=== PATIENT | female | born 1945 | race Caucasian/White ===

== ENCOUNTER 2018-12-12 16:09 | Inpatient (IN) ==
[2018-12-12] MEDS ORDERED: *HR* OxyCODONE/APAP 10/325 TABLET PO PRN (17:16)
[2018-12-12] MEDS ORDERED: *HR* Dextrose 50 % in Water (Vial) 50 ML VIAL IVP PRN (17:18)
[2018-12-12] MEDS ORDERED: D5% in Water 1,000 ML IVC PRN (17:18)
[2018-12-12] MEDS ORDERED: Dextrose Gel 15 GM/37.5 ML TUBE PO PRN ×2 (17:18)
[2018-12-12] MEDS: Insulin LISPRO 300 UNITS/3 ML VIAL SQ SCH (21:44)
[2018-12-13] MEDS: Insulin LISPRO 300 UNITS/3 ML VIAL SQ SCH ×4 (08:52→20:16)
[2018-12-13] MEDS ORDERED: Lactobacillus 1 EACH CAP.SPRINK PO SCH (09:00)
[2018-12-13] MEDS: *HR* SitaGLIPtin 25 MG TABLET PO SCH (09:19)
[2018-12-13] MEDS: Cholecalciferol (D-3) 1,000 UNIT TABLET PO SCH (09:19)
[2018-12-13] MEDS: Tiotropium 18 MCG inhalation IH SCH (10:23)
--- NOTE | 2018-12-13 12:08 | Internal Med History&Physical ---
Date of Encounter: 12/13/18 Time of Encounter: 11:30 Assessment and Plan (1) Hypokalemia Current visit: No Status: Acute Supplemental potassium dose will be increased and labs will be monitored. (2) Weakness Current visit: No Status: Acute She will have PT and OT evaluations with ongoing intervention. (3) DM (diabetes mellitus), type 2 Current visit: No Status: Acute Hemoglobin A1c was 11.1% on 10/04/2017. Recheck in a.m. 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 (5) Dementia Current visit: No Status: Acute MMSE exam will be done. B12 was 645 and TSH 1.245 in April 2016. Continue Aricept. Qualifiers: Dementia type: Alzheimer's disease Alzheimer's disease onset: early-onset Dementia behavioral disturbance: without behavioral disturbance Qualified Code(s): G30.0 - Alzheimer's disease with early onset; F02.80 - Dementia in other diseases classified elsewhere without behavioral disturbance (6) Hypertension Current visit: No Status: Chronic Continue Lopressor and lisinopril Qualifiers: Hypertension type: essential hypertension Qualified Code(s): I10 - Essential (primary) hypertension Internal Medicine - H&P: HPI Chief complaint: Pneumonia, hypoglycemia, dementia Admitted From: Hospital to Hospital Transfer Plans for Post Hospital Care: Home History of present illness: Ms. Mclean is a 73 year old female who was admitted to [facility] swing bed after hospitalization at [facility] December 05- for hypoglycemia. She was treated for pneumonia. She had PT and OT intervention and it was felt she would benefit from ongoing therapy in swing bed. She is a fair to poor historian due to dementia. Past Med Surg Social Fam HX - Past Medical History Medical history: arthritis, CHF, COPD, diabetes, GERD, hyperlipidemia, hypertension, osteoporosis, renal disease, other Additional medical history: narcolepsy, IBS Psychiatric history: anxiety - Past Surgical History Surgical History: other Additional surgical history: right total shoulder replacement 2010 - Social History Smoking Status: Current every day smoker Smokeless Tobacco Status: No Alcohol use: none Drug use: none - Family History Mother Adopted: No Family Member Ethnicity: Non- Living Status: Hx Family Cardiac Disorders: Yes (heart attack, HTN) Hx Family Respiratory Disorders: Yes Hx Family Cancer: No Hx Family GI Disorders: No Hx Family Endocrine Disorder: Yes (diabetes) Hx Family Neuromuscular Disorders: No Hx Family Neurologic Disorders: No Hx Family HEENT Disorders: No Hx Family Autoimmune Disorders: No Internal Medicine - H&P: Meds Albuterol Sulfate [Albuterol Inhaler] 2 puff IH Q6H PRN 12/05/18 [History] Citalopram Hydrobromide [Citalopram HBr] 20 mg PO DAILY 12/05/18 [History] Donepezil [Aricept] 5 mg PO HS 12/05/18 [History] Dulaglutide [Trulicity] 0.75 mg SQ SA 12/05/18 [History] Ergocalciferol (VITAMIN D2) [Vitamin D2] 50,000 unit PO FR 12/05/18 [History] Lisinopril [Zestril] 5 mg PO DAILY 12/05/18 [History] Metoprolol Tartrate 50 mg PO DAILY 12/05/18 [History] Potassium Chloride [K-Tab ER] 10 meq PO DAILY 12/05/18 [History] Sitagliptin Phosphate [Januvia] 50 mg PO DAILY 12/05/18 [History] Tiotropium [Spiriva] 18 mcg IH DAILY 12/05/18 [History] Insulin LISPRO [HumaLOG] See Protocol SQ TIDAC vial 12/12/18 [Rx] Lactobacillus [Culturelle] 2 each PO DAILY cap.sprink 12/12/18 [Rx] OxyCODONE/APAP 10/325 [Percocet 10/325 MG] 1 tab PO Q6H PRN 2 Days #8 tablet 12/12/18 [Rx] Allergy/AdvReac Type Severity Reaction Status Date / Time No Known Allergies Allergy Verified 12/05/18 16:19 All Systems PM: A 10-system review of systems was performed and is negative for pertinent findings except as documented above in the HPI. Review of systems: Review of systems is obtained from the patient and review of available records. Gen.: Her weight has been stable since October 2016 hospitalization at approximately 130 kg. Cardiovascular: She has history of hypertension but no known [place] heart failure DVT or pulmonary embolus. Echocardiogram was done 04/16/2016 and showed LVEF " probably normal". (Follow-up limited echo 04/20/2016 showed LVEF of 70%). There was reported indeterminate diastolic function. E/A ratio was 0.9. The interventricular septum and posterior wall thickness measurements were 1.10 and 1.20 cm respectively. No significant valvular abnormalities were seen. Respiratory: She has smoked since age 13 never exceeding 1 pack per day. She reports supplemental home oxygen is used on an occasional basis. PFTs 06/16/2016 showed FVC 40% predicted, FEV1 30% predicted, FEV1/FVC 71%, and MVV 23% predicted. There was no significant change in FEV1 or FVC postbronchodilator. Most recent chest CT no worrisome findings suspicious for malignancy. She has stable left adrenal gland nodule. GI: She denies disorders of her liver gallbladder or exocrine pancreas. She reports she drank alcohol regularly in the past. : She denies hematuria dysuria or kidney stones. She has chronic kidney disease stage 2-3. Neurologic: She has a diagnosis of dementia. Chart also reports a diagnosis of narcolepsy. She denies large distribution strokes or seizures. Endocrine: She reports being diagnosed with DM 2 in her mid 50s. She denies thyroid disease. She has history of hyperlipidemia Hematology/oncology: She denies blood disorders cancers or anemia Psychiatric: She has diagnoses of anxiety and depression but denies other mental health issues. [place] skeletal: She had right total shoulder replacement in 2009. She has diagnoses of DJD and osteoporosis. She denies other bone joint or muscle disorders. - Constitutional Vitals: Temp Pulse Resp BP Pulse Ox 97.9 F 78 14 140/65 96 12/13/18 07:06 12/13/18 08:59 12/13/18 07:06 12/13/18 07:06 12/13/18 08:59 Exam: Gen.: She is a well-developed morbidly obese female lying in bed who appears in no acute distress. She reports minimal pain. HEENT: Head is atraumatic and normocephalic. Eyes: EOMI. There is no scleral icterus. Mouth: Mucosa is moist. Neck: Supple and nontender. There is no thyromegaly or adenopathy noted. Heart: Regular without murmurs gallops or ectopics Lungs: No wheezes or crackles are heard. Abdomen: He has a very large pannus. Abdomen is soft and nontender. No masses or guarding are noted. Extremities: There is no cyanosis edema or clubbing noted. Dorsalis pedis and posterior tibial pulses are trace palpable. Neurologic: Mental status: She is talkative and able to answer a few questions but is a fair historian at best. She does not know her age and does not recall being at [facility]. Cranial nerves: Smile is symmetric. Forehead wrinkles bilaterally. Tongue protrudes midline. EOMI. Motor: There is no pronator drift. There is no cogwheeling or rigidity on passive range of motion. Cerebellar: Finger to nose is intact bilaterally. Skin: She has ecchymoses of various stages healing involving large areas on her arms. Skin is warm and dry.
[2018-12-14 06:55] LABS: Magnesium 1.8 mg/dL (1.6-2.6); Phosphorous 3.2 mg/dL (2.7-4.5)
[2018-12-14 07:08] LABS: Thyroid Stimulating Hormone 3.353 mcIU/mL (0.340-5.600)
[2018-12-14] MEDS: Insulin LISPRO 300 UNITS/3 ML VIAL SQ SCH ×4 (08:06→20:38)
[2018-12-14] MEDS: Cholecalciferol (D-3) 1,000 UNIT TABLET PO SCH (08:07)
[2018-12-14] MEDS: *HR* SitaGLIPtin 25 MG TABLET PO SCH (08:07)
[2018-12-14 09:57] LABS: Estimated Average Glucose 143 mg/dl; Hemoglobin A1C 6.6 %
--- NOTE | 2018-12-14 10:19 | Internal Med Progress Note ---
Date of Encounter: 12/14/18 Time of Encounter: 10:10 - Assessment and plan (1) Hypokalemia Current Visit: No Status: Acute Assessment and plan: December 14. Continue supplemental potassium and monitor labs. (2) Weakness Current Visit: No Status: Acute Assessment and plan: December 14. Continue PT and OT intervention. (3) DM (diabetes mellitus), type 2 Current Visit: No Status: Acute Assessment and plan: December 14. Hemoglobin A1c acceptable at 6.6%. 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 Monitor renal indices. (5) Dementia Current Visit: No Status: Acute Assessment and plan: December 14. MMSE exam pending. B12 was 645 and TSH 1.245 in April 2016. Continue Aricept. Qualifiers: Dementia type: Alzheimer's disease Alzheimer's disease onset: early-onset Dementia behavioral disturbance: without behavioral disturbance Qualified Code(s): G30.0 - Alzheimer's disease with early onset; F02.80 - Dementia in other diseases classified elsewhere without behavioral disturbance (6) Hypertension Current Visit: No Status: Chronic Assessment and plan: December 14. Continue Lopressor and lisinopril. Qualifiers: Hypertension type: essential hypertension Qualified Code(s): I10 - Essential (primary) hypertension - Subjective Interval history: December 14. She has no new complaints and feels well. She states she wishes to go home. - Constitutional Vitals: Temp Pulse Resp BP Pulse Ox 97.9 F 74 18 97/46 93 12/14/18 06:31 12/14/18 06:31 12/14/18 06:31 12/14/18 06:31 12/14/18 06:31 Exam: She is resting comfortably in bed and appears in no acute distress. Her affect is bright and cheerful. She knows her age today. I reviewed her medications and lab results. Consult Discharge Plan - Plan Referrals: NONE,PCP [Primary Care Provider] - 1 week
[2018-12-14] MEDS: Tiotropium 18 MCG inhalation IH SCH (11:02)
[2018-12-15] MEDS: Insulin LISPRO 300 UNITS/3 ML VIAL SQ SCH ×2 (08:19→11:30)
[2018-12-15 08:59] VITALS: BP 140/58
[2018-12-15] MEDS ORDERED: (Dulaglutide [Trulicity] 0.75 MG) SQ SCH (09:00)
[2018-12-15] MEDS: Cholecalciferol (D-3) 1,000 UNIT TABLET PO SCH (09:01)
[2018-12-15] MEDS: *HR* SitaGLIPtin 25 MG TABLET PO SCH (09:01)
[2018-12-15] MEDS: Tiotropium 18 MCG inhalation IH SCH (09:48)
--- NOTE | 2018-12-15 15:52 | Discharge Summary ---
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 of insulin (4) CKD (chronic kidney disease) stage 3, GFR 30-59 ml/min Priority: Secondary Status: Chronic (5) Dementia Priority: Secondary Status: Chronic Qualifiers: Dementia type: Alzheimer's disease Alzheimer's disease onset: early-onset Dementia behavioral disturbance: without behavioral disturbance Qualified Code(s): G30.0 - Alzheimer's disease with early onset; F02.80 - Dementia in other diseases classified elsewhere without behavioral disturbance (6) Hypertension Priority: Secondary Status: Chronic Qualifiers: Hypertension type: essential hypertension Qualified Code(s): I10 - Essential (primary) hypertension Hospital course: Ms. Mclean is a 73 year old female who was admitted to [facility] swing bed after hospitalization at [facility] December 05- for hypoglycemia. She was treated for pneumonia. She had PT and OT intervention and it was felt she would benefit from ongoing therapy in swing bed. Initial orders were written by the discharging physicians at [facility] I saw her on December 13 and performed the swing bed history and physical. She had physical therapy and occupational therapy evaluations with ongoing intervention. MMSE exam showed scored 21/30. Family members were made aware of concerns for independent living by social service. They felt patient was stable for returning to living at home by herself with frequent checks by her daughter who lives next door. On December 15 the patient stated she wished to be discharged home. Her daughter arrived at the hospital and agreed to take her home. She will follow with her PCP within 1 week. Additional lab work done during hospitalization showed hemoglobin A1c satisfactory at 6.6%. - Time Spent with Patient Total time spent providing and/or coordinating discharge services: - Discharge Medications Prescriptions: Continued Albuterol Sulfate [Albuterol Inhaler] 2 puff IH Q6H PRN PRN Reason: Shortness Of Breath Citalopram Hydrobromide [Citalopram HBr] 20 mg PO DAILY Donepezil [Aricept] 5 mg PO HS Dulaglutide [Trulicity] 0.75 mg SQ SA Ergocalciferol (VITAMIN D2) [Vitamin D2] 50,000 unit PO FR Lisinopril [Zestril] 5 mg PO DAILY Metoprolol Tartrate 50 mg PO DAILY Sitagliptin Phosphate [Januvia] 50 mg PO DAILY Tiotropium [Spiriva] 18 mcg IH DAILY Potassium Chloride [K-Tab ER] 10 meq PO DAILY Insulin LISPRO [HumaLOG] See Protocol SQ TIDAC vial Lactobacillus [Culturelle] 2 each PO DAILY cap.sprink Home Medications: Albuterol Sulfate [Albuterol Inhaler] 2 puff IH Q6H PRN 12/05/18 [History] Citalopram Hydrobromide [Citalopram HBr] 20 mg PO DAILY 12/05/18 [History] Donepezil [Aricept] 5 mg PO HS 12/05/18 [History] Dulaglutide [Trulicity] 0.75 mg SQ SA 12/05/18 [History] Ergocalciferol (VITAMIN D2) [Vitamin D2] 50,000 unit PO FR 12/05/18 [History] Lisinopril [Zestril] 5 mg PO DAILY 12/05/18 [History] Metoprolol Tartrate 50 mg PO DAILY 12/05/18 [History] Potassium Chloride [K-Tab ER] 10 meq PO DAILY 12/05/18 [History] Sitagliptin Phosphate [Januvia] 50 mg PO DAILY 12/05/18 [History] Tiotropium [Spiriva] 18 mcg IH DAILY 12/05/18 [History] Insulin LISPRO [HumaLOG] See Protocol SQ TIDAC vial 12/12/18 [Rx] Lactobacillus [Culturelle] 2 each PO DAILY cap.sprink 12/12/18 [Rx] Allergies/Adverse Reactions: Allergy/AdvReac Type Severity Reaction Status Date / Time No Known Allergies Allergy Verified 12/05/18 16:19 Date of admission: 12/12/18 17:23 Primary care physician: PCP NONE Consults: 12/12/18 17:20 Consult to Occupational Therapy [CONS] Routine Comment: evaluate, develop, and implement plan of care Reason for Consult: evaluate, develop, and implement plan of care Does patient have active BEDREST order?: No Is patient medically & hemodynamically stable?: Yes Patient assessed for mobility or mobilized this visit?: No Consult to Physical Therapy [CONS] Routine Comment: evaluate, develop, and implement plan of care Reason for Consult: evaluate, develop, and implement plan of care Does patient have active BEDREST order?: No Is patient medically & hemodynamically stable?: Yes Patient assessed for mobility or mobilized this visit?: No Consult to Casino Dealer [CONS] Routine Reason for SW Consult: discharge planning - Constitutional Vitals: Temp Pulse Resp BP Pulse Ox 97.8 F 67 16 140/58 99 12/15/18 07:43 12/15/18 08:58 12/15/18 09:48 12/15/18 08:58 12/15/18 09:48 - Patient Status Disposition: Home, Self-Care - Discharge Instructions Follow Up With: NONE,PCP [Primary Care Provider] - 1 week - Diet and Activity Activity: as per physical therapy Diet: diabetic diet
== END 2018-12-15 16:30 | disposition home or self-care (01) | DRG 640 ==
LOC: INPPIK 17:23
PROVIDERS: ADMIT Internal Medicine; ATTEND Internal Medicine

== ENCOUNTER 2019-02-26 18:05 | Inpatient (IN) ==
--- NOTE | 2019-02-26 19:55 | Internal Med History&Physical ---
Date of Encounter: 02/26/19 Time of Encounter: 19:30 Assessment and Plan (1) Acute on chronic kidney failure Current visit: No Status: Acute Lasix and lisinopril will be held. Renal indices will be monitored. Qualifiers: Acute renal failure type: unspecified Chronic kidney disease stage: stage 3 (moderate) Qualified Code(s): N17.9 - Acute kidney failure, unspecified; N18.3 - Chronic kidney disease, stage 3 (moderate) (2) Candidal skin infection Current visit: No Status: Acute Lotrimin cream will be ordered (3) Dementia Current visit: No Status: Chronic Continue Aricept and Namenda Qualifiers: Dementia type: Alzheimer's disease Alzheimer's disease onset: early-onset Dementia behavioral disturbance: without behavioral disturbance Qualified Code(s): G30.0 - Alzheimer's disease with early onset; F02.80 - Dementia in other diseases classified elsewhere without behavioral disturbance (4) Abscess of right buttock Current visit: No Status: Acute Status post debridement. Santyl and gentamicin cream have been ordered. (5) DM (diabetes mellitus), type 2 Current visit: No Status: Chronic Hemoglobin A1c was 6.6% on 12/14/2018. Recheck in a.m. 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 Internal Medicine - H&P: HPI Chief complaint: Weakness, gluteal wound, acute renal insufficiency Admitted From: Emergency Dept Plans for Post Hospital Care: Home History of present illness: Ms. Mclean is a 73 year old female who was directly admitted from [facility] emergency room to [facility] swing bed after she presented with weakness and acute renal insufficiency. She is a poor historian and cannot remember details. She has no recollection of her [facility] hospitalization February 07-February 18 where she had treatment for sacrum abscess and right gluteal pressure ulcer. Wound culture showed MRSA and VRE. She has significant dementia with MMSE score of 21/30 during her November 2018 [facility] stay. Documentation states the patient is not safe to live independently at home. Family has declined LTC at SNF. At time of her 02/18/2019 [facility] discharge she returned home AMA instead of going to inpatient rehabilitation. She is being admitted to [facility] swing bed for ongoing care needs. Past Med Surg Social Fam HX - Past Medical History Medical history: arthritis, CHF, COPD, dementia, diabetes, GERD, hyperlipidemia, hypertension, osteoporosis, renal disease, other Additional medical history: narcolepsy, IBS Psychiatric history: no psych history - Past Surgical History Surgical History: other Additional surgical history: right total shoulder replacement 2009 - Social History Smoking Status: Current every day smoker Smokeless Tobacco Status: No Alcohol use: none Drug use: none - Family History Mother Adopted: No Family Member Ethnicity: Non- Living Status: Hx Family Cardiac Disorders: Yes (heart attack, HTN) Hx Family Respiratory Disorders: Yes Hx Family Cancer: No Hx Family GI Disorders: No Hx Family Endocrine Disorder: Yes (diabetes) Hx Family Neuromuscular Disorders: No Hx Family Neurologic Disorders: No Hx Family HEENT Disorders: No Hx Family Autoimmune Disorders: No Internal Medicine - H&P: Meds Citalopram Hydrobromide [Citalopram HBr] 20 mg PO DAILY 12/05/18 [History] Donepezil [Aricept] 5 mg PO DAILY 12/05/18 [History] Ergocalciferol (VITAMIN D2) [Vitamin D2] 50,000 unit PO WE 12/05/18 [History] Lisinopril [Zestril] 5 mg PO DAILY 12/05/18 [History] Metoprolol Tartrate 50 mg PO DAILY 12/05/18 [History] Potassium Chloride [K-Tab ER] 10 meq PO DAILY 12/05/18 [History] Sitagliptin Phosphate [Januvia] 50 mg PO DAILY 12/05/18 [History] OxyCODONE/APAP 10/325 [Percocet 10/325 MG] 1 tab PO Q6H PRN 12/17/18 [History] Furosemide [Lasix] 20 mg PO Q48H 01/10/19 [History] Memantine HCl 5 mg PO DAILY 01/10/19 [History] Allergy/AdvReac Type Severity Reaction Status Date / Time No Known Allergies Allergy Verified 02/25/19 21:59 All Systems PM: A 10-system review of systems was performed and is negative for pertinent findings except as documented above in the HPI. Review of systems: Review of systems from her November 2018 [facility] stay reviewed and revised as below. Patient cannot give any additional meaningful history herself. Gen.: Her weight had been stable since October 2016 hospitalization at approximately 130 kg. through her November 2018 [facility] stay but has now declined 219.777 kg. Cardiovascular: She has history of hypertension but no known [place] heart failure DVT or pulmonary embolus. Echocardiogram was done 04/16/2016 and showed LVEF " probably normal". (Follow-up limited echo 04/20/2016 showed LVEF of 70%). There was reported indeterminate diastolic function. E/A ratio was 0.9. The interventricular septum and posterior wall thickness measurements were 1.10 and 1.20 cm respectively. No significant valvular abnormalities were seen. Respiratory: She has smoked since age 13 never exceeding 1 pack per day. She reports supplemental home oxygen is used on an occasional basis. PFTs 06/16/2016 showed FVC 40% predicted, FEV1 30% predicted, FEV1/FVC 71%, and MVV 23% predicted. There was no significant change in FEV1 or FVC postbronchodilator. Most recent chest CT no worrisome findings suspicious for malignancy. She has stable left adrenal gland nodule. GI: She denies disorders of her liver gallbladder or exocrine pancreas. She reports she drank alcohol regularly in the past. : She denies hematuria dysuria or kidney stones. She has chronic kidney disease stage 2-3. Neurologic: She has a diagnosis of dementia. MMSE score was 21/30 during her November 2018 [facility] stay. Chart also reports a diagnosis of narcolepsy. She denies large distribution strokes or seizures. Endocrine: She reports being diagnosed with DM 2 in her mid 50s. She denies thyroid disease. She has history of hyperlipidemia Hematology/oncology: She denies blood disorders cancers or anemia Psychiatric: She has diagnoses of anxiety and depression but denies other mental health issues. Musko skeletal: She had right total shoulder replacement in 2009. She has diagnoses of DJD and osteoporosis. She denies other bone joint or muscle disorders. - Constitutional Vitals: Temp Pulse Resp BP Pulse Ox 98.3 F 79 24 130/77 97 02/26/19 18:16 02/26/19 18:16 02/26/19 18:16 02/26/19 18:16 02/26/19 18:16 Exam: Gen.: She is a well-developed obese female lying in bed who appears in no acute distress. She is pleasant and follows commands. She is a poor historian. HEENT: Head is atraumatic and normocephalic. Eyes: EOMI. There is no scleral icterus. Mouth: Mucosa is moist. Neck: Supple and nontender. There is no thyromegaly or adenopathy noted. Heart: Regular without murmurs gallops or ectopics Lungs: No wheezes or crackles are heard. Abdomen: Soft and nontender. No masses or guarding are noted. Extremities: There is no cyanosis edema or clubbing noted. Dorsalis pedis and posterior tibial pulses are trace palpable bilaterally. Neurologic: Mental status: She is awake and talkative but a poor historian. She does not know her location or remember being hospitalized at [facility] last week. Cranial nerves: Smile is symmetric. Forehead wrinkles bilaterally. Tongue protrudes midline. EOMI. Motor: There is no pronator drift. Cerebellar: Finger to nose is intact bilaterally. Skin: She has a stage III ulcer measuring approximately 5 cm maximal diameter on her right gluteal area. There is no significant drainage or exudate. There is good granulation tissue in the base. She has widespread intertrigo under her breast in skin folds as well as on the gluteal area and in the popliteal skin folds.
[2019-02-26] MEDS ORDERED: Clotrimazole/Betameth Dip CRM 45 APPL/45 GM TUBE TP SCH (21:00)
[2019-02-26] MEDS: Gentamicin Oint 15 GM TUBE TP SCH (22:17)
[2019-02-26] MEDS: Clotrimazole 1% CRM 15 GM TUBE TP SCH (22:20)
[2019-02-27 07:14] LABS: BUN/Creatinine Ratio 9 (6-26); Blood Urea Nitrogen 9 mg/dL (8-23); Calcium 8.5 mg/dL (8.6-10.3); Carbon Dioxide 33 mEq/L (23-29); Chloride 103 mEq/L (98-107); Glucose 109 mg/dL (70-105); Osmolality,Calculated 293 (280-300); Potassium 3.7 mEq/L (3.5-5.1); Sodium 142 mEq/L (136-145); eGFR For African Americans > 60 (> 60); eGFR For Non-African Americans 57 (> 60)
[2019-02-27] MEDS: *HR* SitaGLIPtin 25 MG TABLET PO SCH (09:26)
[2019-02-27 09:27] LABS: Estimated Average Glucose 143 mg/dl
[2019-02-27] MEDS: Gentamicin Oint 15 GM TUBE TP SCH (09:27)
[2019-02-27] MEDS: Clotrimazole 1% CRM 15 GM TUBE TP SCH ×2 (09:27→21:08)
--- NOTE | 2019-02-27 16:48 | Internal Med Progress Note ---
Date of Encounter: 02/27/19 Time of Encounter: 16:40 - Assessment and plan (1) Acute on chronic kidney failure Current Visit: No Status: Acute Assessment and plan: February 27. BUN and creatinine have decreased to 9 and 0.96 respectively with estimated GFR 57. Continue to hold Lasix and lisinopril. Qualifiers: Acute renal failure type: unspecified Chronic kidney disease stage: stage 3 (moderate) Qualified Code(s): N17.9 - Acute kidney failure, unspecified; N18.3 - Chronic kidney disease, stage 3 (moderate) (2) Candidal skin infection Current Visit: No Status: Acute Assessment and plan: February 27. Continue Lotrimin cream (3) Dementia Current Visit: No Status: Chronic Assessment and plan: February 27. Continue Aricept and Namenda Qualifiers: Dementia type: Alzheimer's disease Alzheimer's disease onset: early-onset Dementia behavioral disturbance: without behavioral disturbance Qualified Code(s): G30.0 - Alzheimer's disease with early onset; F02.80 - Dementia in other diseases classified elsewhere without behavioral disturbance (4) Abscess of right buttock Current Visit: No Status: Acute Assessment and plan: February 27. Continue Santyl and gentamicin cream. (5) DM (diabetes mellitus), type 2 Current Visit: No Status: Chronic Assessment and plan: February 27. Hemoglobin A1c was 6.6%. Continue Januvia and Accu-Cheks with SSI. Qualifiers: Diabetes mellitus emt intermediate insulin use: with emt intermediate use Diabetes mellitus complication status: with neurologic complications Diabetes mellitus complication detail: with polyneuropathy Qualified Code(s): E11.42 - Type 2 diabetes mellitus with diabetic polyneuropathy; Z79.4 - [facility] (current) use of insulin (6) Weakness Current Visit: No Status: Acute Assessment and plan: February 27. Continue PT and OT intervention. - Subjective Interval history: February 27. She has no new complaints. She states she wants to go home. - Constitutional Vitals: Temp Pulse Resp BP Pulse Ox 98.5 F 78 18 138/79 96 02/27/19 08:06 02/27/19 08:06 02/27/19 08:06 02/27/19 08:06 02/27/19 08:06 Exam: She is resting comfortably in bed and appears in no acute distress. I explained in detail how her course from November 2018 to present time indicates she is not safe to live independently at home in the near future. I reminded her of her recent hospitalization at [facility] but she did not seem to recall the event. She did not seem to recall that she signed out AMA to go home instead of going to inpatient rehabilitation as was recommended by [facility] providers. I note MMSE score of 21/30 during her December 07 [facility] stay. Internal Medicine: Result - Labs CBC & Chem 7: 02/27/19 05:30 Labs: BMP 02/27/19 05:30 Sodium 142 Potassium 3.7 Chloride 103 Carbon Dioxide 33 H BUN 9 Creatinine 0.96 Glucose 109 H Calcium 8.5 L Consult Discharge Plan - Plan Referrals: Jose Hill MD [Primary Care Provider] - 1 week
[2019-02-27] MEDS: *HR* OxyCODONE/APAP 10/325 TABLET PO PRN (17:43)
[2019-02-28] MEDS: *HR* SitaGLIPtin 25 MG TABLET PO SCH (09:39)
[2019-02-28] MEDS: Clotrimazole 1% CRM 15 GM TUBE TP SCH ×2 (09:45→19:41)
--- NOTE | 2019-02-28 14:25 | Internal Med Progress Note ---
Date of Encounter: 02/28/19 Time of Encounter: 14:05 - Assessment and plan (1) Acute on chronic kidney failure Current Visit: No Status: Acute Assessment and plan: February 27. BUN and creatinine have decreased to 9 and 0.96 respectively with estimated GFR 57. Continue to hold Lasix and lisinopril. Qualifiers: Acute renal failure type: unspecified Chronic kidney disease stage: stage 3 (moderate) Qualified Code(s): N17.9 - Acute kidney failure, unspecified; N18.3 - Chronic kidney disease, stage 3 (moderate) (2) Candidal skin infection Current Visit: No Status: Acute Assessment and plan: February 27. Continue Lotrimin cream (3) Dementia Current Visit: No Status: Chronic Assessment and plan: February 27. Continue Aricept and Namenda Qualifiers: Dementia type: Alzheimer's disease Alzheimer's disease onset: early-onset Dementia behavioral disturbance: without behavioral disturbance Qualified Code(s): G30.0 - Alzheimer's disease with early onset; F02.80 - Dementia in other diseases classified elsewhere without behavioral disturbance (4) Abscess of right buttock Current Visit: No Status: Acute Assessment and plan: February 27. Continue Santyl and gentamicin cream. February 28. Discontinue Santyl but continue gentamicin cream with dressing. Check zinc level (5) DM (diabetes mellitus), type 2 Current Visit: No Status: Chronic Assessment and plan: February 27. Hemoglobin A1c was 6.6%. Continue Januvia and Accu-Cheks with SSI. Qualifiers: Diabetes mellitus termite inspector insulin use: with termite inspector use Diabetes mellitus complication status: with neurologic complications Diabetes mellitus complication detail: with polyneuropathy Qualified Code(s): E11.42 - Type 2 diabetes mellitus with diabetic polyneuropathy; Z79.4 - [facility] (current) use of insulin (6) Weakness Current Visit: No Status: Acute Assessment and plan: February 27. Continue PT and OT intervention. - Subjective Interval history: February 27. She has no new complaints. She states she wants to go home. February 28. She has no new complaints. - Constitutional Vitals: Temp Pulse Resp BP Pulse Ox 98.3 F 72 16 143/65 96 02/28/19 07:08 02/28/19 07:08 02/28/19 07:08 02/28/19 07:08 02/28/19 07:08 Exam: She is resting comfortably in bed and appears in no acute distress. Extremities show no edema. The intertrigo shows gradual improvement. The right gluteal ulcer shows minimal exudate in the base. There is no significant drainage or foul odor. I reviewed her medications and lab results. Internal Medicine: Result - Labs CBC & Chem 7: 02/27/19 05:30 Consult Discharge Plan - Plan Referrals: Jose Hill MD [Primary Care Provider] - 1 week
[2019-02-28] MEDS: Gentamicin Oint 15 GM TUBE TP SCH (14:36)
[2019-03-01 07:09] LABS: Alanine Aminotransferase 6 Units/L (7-52); Albumin 2.9 g/dL (3.5-5.7); Albumin/Globulin Ratio 1.1 (1.1-2.2); Alkaline Phosphatase 49 Units/L (34-104); Aspartate Amino Transferase 20 Units/L (13-39); BUN/Creatinine Ratio 12 (6-26); Bilirubin,Total 0.3 mg/dL (0.3-1.0); Blood Urea Nitrogen 13 mg/dL (8-23); Calcium 8.8 mg/dL (8.6-10.3); Carbon Dioxide 37 mEq/L (23-29); Chloride 101 mEq/L (98-107); Globulin 2.6 g/dL (2.4-3.5); Glucose 130 mg/dL (70-105); Magnesium 1.8 mg/dL (1.6-2.6); Osmolality,Calculated 296 (280-300); Sodium 142 mEq/L (136-145); Total Protein 5.5 g/dL (6.4-8.9); eGFR For African Americans > 60 (> 60); eGFR For Non-African Americans 50 (> 60)
[2019-03-01 07:44] LABS: Basophils % 0.3 %; Eosinophils # 0.2 K/mcL (0.0-0.6); Hematocrit 37.5 % (35.3-44.9); Hemoglobin 11.7 g/dL (11.5-15.4); Immature Granulocytes % 0.1 % (0-4); Lymphocytes # 2.2 K/mcL (0.6-4.6); Lymphocytes % 32.3 %; Mean Corpuscular HGB Conc 31.2 g/dL (31.6-35.5); Mean Corpuscular Hemoglobin 30.4 pg (28.0-33.3); Mean Corpuscular Volume 97.4 fL (83.0-100.0); Mean Platelet Volume 10.6 fL (9.4-12.4); Monocytes # 0.6 K/mcL (0.0-1.3); Monocytes % 9.3 %; Neutrophils # 3.8 K/mcL (1.6-8.9); Platelet Count 209 K/mcL (140-400); Red Blood Count 3.85 M/mcL (3.82-4.97); Red Cell Distribution Width 14.7 % (11.5-14.5); White Blood Count 6.9 K/mcL (4.3-11.1)
[2019-03-01] MEDS: *HR* SitaGLIPtin 25 MG TABLET PO SCH (08:50)
[2019-03-01] MEDS: Gentamicin Oint 15 GM TUBE TP SCH (12:46)
[2019-03-01] MEDS: Clotrimazole 1% CRM 15 GM TUBE TP SCH (14:43)
[2019-03-02] MEDS: Gentamicin Oint 15 GM TUBE TP SCH (08:16)
[2019-03-02] MEDS: *HR* OxyCODONE/APAP 10/325 TABLET PO PRN (22:37)
[2019-03-03] MEDS: Gentamicin Oint 15 GM TUBE TP SCH (07:59)
[2019-03-03] MEDS: *HR* OxyCODONE/APAP 10/325 TABLET PO PRN ×2 (17:23→23:40)
--- NOTE | 2019-03-03 17:31 | Internal Med Progress Note ---
Date of Encounter: 03/03/19 Time of Encounter: 17:22 - Assessment and plan (1) Acute on chronic kidney failure Current Visit: No Status: Acute Assessment and plan: February 27. BUN and creatinine have decreased to 9 and 0.96 respectively with estimated GFR 57. Continue to hold Lasix and lisinopril. March 03. Recheck labs in a.m. Qualifiers: Acute renal failure type: unspecified Chronic kidney disease stage: stage 3 (moderate) Qualified Code(s): N17.9 - Acute kidney failure, unspecified; N18.3 - Chronic kidney disease, stage 3 (moderate) (2) Candidal skin infection Current Visit: No Status: Acute Assessment and plan: February 27. Continue Lotrimin cream (3) Dementia Current Visit: No Status: Chronic Assessment and plan: February 27. Continue Aricept and Namenda Qualifiers: Dementia type: Alzheimer's disease Alzheimer's disease onset: early-onset Dementia behavioral disturbance: without behavioral disturbance Qualified Code(s): G30.0 - Alzheimer's disease with early onset; F02.80 - Dementia in other diseases classified elsewhere without behavioral disturbance (4) Abscess of right buttock Current Visit: No Status: Acute Assessment and plan: February 27. Continue Santyl and gentamicin cream. February 28. Discontinue Santyl but continue gentamicin cream with dressing. Check zinc level (5) DM (diabetes mellitus), type 2 Current Visit: No Status: Chronic Assessment and plan: February 27. Hemoglobin A1c was 6.6%. Continue Januvia and Accu-Cheks with SSI. March 03. Blood sugars remained satisfactory. Continue present Rx. Qualifiers: Diabetes mellitus pasting machine offbearer insulin use: with halfway use Diabetes mellitus complication status: with neurologic complications Diabetes mellitus complication detail: with polyneuropathy Qualified Code(s): E11.42 - Type 2 diabetes mellitus with diabetic polyneuropathy; Z79.4 - [facility] (current) use of insulin (6) Weakness Current Visit: No Status: Acute Assessment and plan: February 27. Continue PT and OT intervention. (7) Back pain Current Visit: Yes Status: Acute Assessment and plan: March 03. UA will be ordered. Continue Percocet. Qualifiers: Back pain location: low back pain Chronicity: chronic Back pain laterality: right Sciatica presence: without sciatica Qualified Code(s): M54.5 - Low back pain; G89.29 - Other chronic pain - Subjective Interval history: February 27. She has no new complaints. She states she wants to go home. February 28. She has no new complaints. March 03. She complains of pain in her right lower back that is worse than her chronic level of pain in the same location. - Constitutional Vitals: Temp Pulse Resp BP Pulse Ox 98.4 F 66 18 141/57 94 03/03/19 06:46 03/03/19 06:46 03/03/19 06:46 03/03/19 06:46 03/03/19 06:46 Exam: She is lying in bed eating supper. Her affect does not reflect severe pain. Jevity show no pitting edema. I reviewed her medications and lab results. Internal Medicine: Result - Labs CBC & Chem 7: 03/01/19 06:41 03/01/19 06:41 Consult Discharge Plan - Plan Referrals: Jose Hill MD [Primary Care Provider] - 1 week
[2019-03-04 08:10] LABS: Basophils % 0.2 %; Eosinophils # 0.1 K/mcL (0.0-0.6); Eosinophils % 0.8 %; Hematocrit 38.6 % (35.3-44.9); Hemoglobin 12.6 g/dL (11.5-15.4); Immature Granulocytes % 0.7 % (0-4); Lymphocytes # 1.7 K/mcL (0.6-4.6); Lymphocytes % 16.9 %; Mean Corpuscular HGB Conc 32.6 g/dL (31.6-35.5); Mean Corpuscular Hemoglobin 30.6 pg (28.0-33.3); Mean Corpuscular Volume 93.7 fL (83.0-100.0); Mean Platelet Volume 10.2 fL (9.4-12.4); Monocytes # 1.2 K/mcL (0.0-1.3); Monocytes % 11.8 %; Neutrophils # 6.9 K/mcL (1.6-8.9); Platelet Count 228 K/mcL (140-400); Red Blood Count 4.12 M/mcL (3.82-4.97); Red Cell Distribution Width 14.4 % (11.5-14.5); Segmented Neutrophils % 69.6 %; White Blood Count 9.9 K/mcL (4.3-11.1)
[2019-03-04 08:50] LABS: BUN/Creatinine Ratio 18 (6-26); Blood Urea Nitrogen 18 mg/dL (8-23); Calcium 9.1 mg/dL (8.6-10.3); Carbon Dioxide 33 mEq/L (23-29); Chloride 97 mEq/L (98-107); Glucose 166 mg/dL (70-105); Osmolality,Calculated 288 (280-300); Potassium 4.1 mEq/L (3.5-5.1); Sodium 136 mEq/L (136-145); eGFR For African Americans > 60 (> 60); eGFR For Non-African Americans 54 (> 60)
[2019-03-04] MEDS: *HR* OxyCODONE/APAP 10/325 TABLET PO PRN ×2 (13:57→20:16)
[2019-03-04] MEDS: Gentamicin Oint 15 GM TUBE TP SCH (18:00)
[2019-03-05] MEDS: *HR* OxyCODONE/APAP 10/325 TABLET PO PRN ×3 (03:55→18:14)
[2019-03-05] MEDS: Gentamicin Oint 15 GM TUBE TP SCH (11:33)
[2019-03-06 09:48] VITALS: BP 133/55
[2019-03-06] MEDS: Gentamicin Oint 15 GM TUBE TP SCH (09:49)
--- NOTE | 2019-03-06 12:29 | Discharge Summary ---
Date of Encounter: 03/06/19 Time of Encounter: 12:17 - Discharge Diagnosis (1) Acute on chronic kidney failure Priority: Primary Status: Acute Qualifiers: Acute renal failure type: unspecified Chronic kidney disease stage: stage 3 (moderate) Qualified Code(s): N17.9 - Acute kidney failure, unspecified; N18.3 - Chronic kidney disease, stage 3 (moderate) (2) Candidal skin infection Priority: Secondary Status: Acute (3) Dementia Priority: Secondary Status: Chronic Qualifiers: Dementia type: Alzheimer's disease Alzheimer's disease onset: early-onset Dementia behavioral disturbance: without behavioral disturbance Qualified Code(s): G30.0 - Alzheimer's disease with early onset; F02.80 - Dementia in other diseases classified elsewhere without behavioral disturbance (4) Abscess of right buttock Priority: Secondary Status: Chronic (5) DM (diabetes mellitus), type 2 Priority: Secondary Status: Chronic Qualifiers: Diabetes mellitus longterm insulin use: with petroleum terminal plant 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 Mclean is a 73 year old female who was directly admitted from [facility] emergency room to [facility] swing bed after she presented with weakness and acute renal insufficiency. She is a poor historian and cannot remember details. She has no recollection of her [facility] hospitalization February 07-February 18 where she had treatment for sacrum abscess and right gluteal pressure ulcer. Wound culture showed MRSA and VRE. She has significant dementia with MMSE score of 21/30 during her November 2018 [facility] stay. Documentation states the patient is not safe to live independently at home. Family has declined LTC at SNF. At time of her 02/18/2019 [facility] discharge she returned home AMA instead of going to inpatient rehabilitation. She is being admitted to [facility] swing bed for ongoing care needs. I saw her on February 26 and performed a swing bed history and physical. Lasix and lisinopril were held and renal indices monitored. BUN and creatinine were stable at 18 and 1.01 respectively on March 04 with estimated GFR 54. Blood pressure remains stable. She will remain off these medications at discharge. Antifungal cream was started for tinea corporis. There was significant improvement by day of discharge. She will continue this upon discharge. Gentamicin cream was applied to the right buttock wound. Hemoglobin A1c returned satisfactory at 6.6%. Zinc level returned slightly low at 51.6. She will be started on zinc sulfate. PT and OT evaluation ongoing intervention was done. Minimal progress was accomplished. It was agreed by the care team the patient was making minimal progress overall and was not safe to return to the home environment at this time. Social service contacted patient's daughters and arrangements were complete on March 06 for patient to be transferred to [facility] in [place]. - Time Spent with Patient Total time spent providing and/or coordinating discharge services: - Discharge Medications Prescriptions: New Miconazole 2% cream [Roly Antifungal] 1 appl TP BID tube Metoprolol [Lopressor] 25 mg PO BID tablet Memantine [Namenda] 5 mg PO BID tablet Gentamicin Oint [Garamycin] 1 appl TP DAILY tube Zinc Sulfate 220 mg PO DAILY 30 Days tablet Continued Citalopram Hydrobromide [Citalopram HBr] 20 mg PO DAILY Donepezil [Aricept] 5 mg PO DAILY Ergocalciferol (VITAMIN D2) [Vitamin D2] 50,000 unit PO WE Sitagliptin Phosphate [Januvia] 50 mg PO DAILY Potassium Chloride [K-Tab ER] 10 meq PO DAILY OxyCODONE/APAP 10/325 [Percocet 10/325 MG] 1 tab PO Q6H PRN 3 Days #12 tablet PRN Reason: Pain Discontinued Lisinopril [Zestril] 5 mg PO DAILY Metoprolol Tartrate 50 mg PO DAILY Furosemide [Lasix] 20 mg PO Q48H Memantine HCl 5 mg PO DAILY Home Medications: Citalopram Hydrobromide [Citalopram HBr] 20 mg PO DAILY 12/05/18 [History] Donepezil [Aricept] 5 mg PO DAILY 12/05/18 [History] Ergocalciferol (VITAMIN D2) [Vitamin D2] 50,000 unit PO WE 12/05/18 [History] Potassium Chloride [K-Tab ER] 10 meq PO DAILY 12/05/18 [History] Sitagliptin Phosphate [Januvia] 50 mg PO DAILY 12/05/18 [History] Gentamicin Oint [Garamycin] 1 appl TP DAILY tube 03/06/19 [Rx] Memantine [Namenda] 5 mg PO BID tablet 03/06/19 [Rx] Metoprolol [Lopressor] 25 mg PO BID tablet 03/06/19 [Rx] Miconazole 2% cream [Roly Antifungal] 1 appl TP BID tube 03/06/19 [Rx] OxyCODONE/APAP 10/325 [Percocet 10/325 MG] 1 tab PO Q6H PRN 3 Days #12 tablet 03/06/19 [Rx] Zinc Sulfate 220 mg PO DAILY 30 Days tablet 03/06/19 [Rx] Allergies/Adverse Reactions: Allergy/AdvReac Type Severity Reaction Status Date / Time No Known Allergies Allergy Verified 02/25/19 21:59 Date of admission: 02/26/19 18:39 Primary care physician: Jose Hill MD Consults: 02/26/19 18:38 Consult to Nutrition [CONS] Routine Comment: Consulting Provider: NUTRITION Reason for Dietary Consult: MST Score Consult to Sat Math Tutor [CONS] Routine Reason for SW Consult: Discharge planning 02/26/19 20:16 Consult to Occupational Therapy [CONS] Routine Comment: Evaluate, develop and implement POC Reason for Consult: Weakness Does patient have active BEDREST order?: No Is patient medically & hemodynamically stable?: Yes Patient assessed for mobility or mobilized this visit?: Yes 02/26/19 20:17 Consult to Physical Therapy [CONS] DAILY Comment: Evaluate, develop and implement POC Reason for Consult: Weakness Does patient have active BEDREST order?: No Is patient medically & hemodynamically stable?: Yes Patient assessed for mobility or mobilized this visit?: Yes - Constitutional Vitals: Temp Pulse Resp BP Pulse Ox 98.7 F 69 16 133/55 98 03/06/19 06:52 03/06/19 09:48 03/06/19 06:52 03/06/19 09:48 03/06/19 06:52 - Patient Status Disposition: Transfer SNF - Discharge Instructions Follow Up With: Jose Hill MD [Primary Care Provider] - 1 week - Diet and Activity Activity: as per physical therapy Diet: diabetic diet
--- NOTE | 2019-03-06 12:38 | Physician Discharge Referral ---
ExtendedCare Referral Info Transfer To: [facility] Provider in Charge: Walt Provider in Charge after Transfer: PCP - Diagnosis (1) Acute on chronic kidney failure Priority: Primary Status: Acute (2) Candidal skin infection Priority: Secondary Status: Acute (3) Dementia Priority: Secondary Status: Chronic (4) Abscess of right buttock Priority: Secondary Status: Chronic (5) DM (diabetes mellitus), type 2 Priority: Secondary Status: Chronic (6) Weakness Priority: Secondary Status: Chronic (7) Back pain Status: Acute Prognosis: Fair Aware of Diagnosis: Family Aware of Prognosis: Family - Transfer Medications Prescriptions: OxyCODONE/APAP 10/325 [Percocet 10/325 MG] 1 tab PO Q6H PRN 3 Days #12 tablet PRN Reason: Pain Zinc Sulfate 220 mg PO DAILY 30 Days tablet Home Medications: Citalopram Hydrobromide [Citalopram HBr] 20 mg PO DAILY 12/05/18 [History] Donepezil [Aricept] 5 mg PO DAILY 12/05/18 [History] Ergocalciferol (VITAMIN D2) [Vitamin D2] 50,000 unit PO WE 12/05/18 [History] Potassium Chloride [K-Tab ER] 10 meq PO DAILY 12/05/18 [History] Sitagliptin Phosphate [Januvia] 50 mg PO DAILY 12/05/18 [History] Gentamicin Oint [Garamycin] 1 appl TP DAILY tube 03/06/19 [Rx] Memantine [Namenda] 5 mg PO BID tablet 03/06/19 [Rx] Metoprolol [Lopressor] 25 mg PO BID tablet 03/06/19 [Rx] Miconazole 2% cream [Roly Antifungal] 1 appl TP BID tube 03/06/19 [Rx] OxyCODONE/APAP 10/325 [Percocet 10/325 MG] 1 tab PO Q6H PRN 3 Days #12 tablet 03/06/19 [Rx] Zinc Sulfate 220 mg PO DAILY 30 Days tablet 03/06/19 [Rx] Allergies/Adverse Reactions: Allergy/AdvReac Type Severity Reaction Status Date / Time No Known Allergies Allergy Verified 02/25/19 21:59 - Respiratory Orders Smoking Cessation: Smoking cessation has been advised. For more information, call the [place] Tobacco Quit Line at 0-440-CYMH-NOW. - Advance Directives Code Status: Full Code - Rehabiliation Orders Rehab Orders: Evaluation for Physical Therapy, Evaluation for Occupational Therapy - Diet Orders No Concentrated Sweets CERTIFICATION: I certify that the transfer of the above named patient to an Extended Care Facility is necessary for the continuing treatment of the diagnosis listed. The above information is true and accurate reflection of patient's current condition. Confidential - Redisclosure prohibited without a patient's written consent.
== END 2019-03-06 16:30 | DRG 945 ==
LOC: INPPIK 18:39
PROVIDERS: ADMIT Internal Medicine; ATTEND Internal Medicine